=== PATIENT | female | born 1990 | race Caucasian/White ===

== ENCOUNTER 2019-01-19 14:10 | Emergency (ER) | payer SELFPAY ==
[~2019-01-19] VITALS: Ht 149.9 cm; Wt 113.4 kg
[2019-01-19 14:16] VITALS: Ht 149.9 cm; Wt 113.4 kg
[2019-01-19 14:56] VITALS: BP 103/47
== END 2019-01-19 14:56 | disposition home or self-care (01) ==
LOC: ED 14:10
DX: R55 Syncope and collapse (principal); R42 Dizziness and giddiness